=== PATIENT | female | born 1965 | race American Indian/Alaskan Native ===

== ENCOUNTER 2017-08-16 22:18 | Emergency (ER) | payer SELFPAY ==
[2017-08-17 00:01] VITALS: BP 123/75
[2017-08-17] MEDS ORDERED: MOTRIN PO ONE (04:48)
[2017-08-17] MEDS ORDERED: FLEXERIL PO ONE (04:48)
--- NOTE | 2017-08-17 04:54 | Emergency Department Report ---
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 Complaint: hip injury -: Gradual Injury: Hip: Right Type of Injury: unknown Place: home Severity: moderate Severity scale (0 -10): 4 Worsens With: weight bearing, movement, palpation Associated Symptoms: ambulatory Treatments Prior to Arrival: cold therapy - Related Data Home Medications Medication Instructions Recorded Confirmed Last Taken Hydrochlorothiazide [Hctz] 25 mg PO QDAY 08/03/13 06/28/14 06/28/14 Previous Rx's Medication Instructions Recorded Last Taken Type Acetaminophen/Codeine 1 tab PO Q6H PRN #15 tab 06/29/14 Unknown Rx [Acetaminophen-Codeine #3 TAB] Ibuprofen [Motrin] 800 mg PO Q8H PRN #21 tablet 06/29/14 Unknown Rx Cyclobenzaprine [Flexeril] 10 mg PO BID PRN #20 tablet 08/17/17 Unknown Rx Menthol/Camphor [[place] 1 applicatio TP BID PRN #1 tube 08/17/17 Unknown Rx Ointment] Naproxen 500 mg PO BID PRN #30 tablet 08/17/17 Unknown Rx Allergies Allergy/AdvReac Type Severity Reaction Status Date / Time No Known Allergies Allergy Verified 06/28/14 21:32 ED Review of Systems ROS: Stated complaint: RT HIP PAIN Other details as noted in HPI Constitutional: denies: chills, fever Eyes: denies: eye pain, eye discharge, vision change ENT: denies: ear pain, throat pain Respiratory: denies: cough, shortness of breath, wheezing Cardiovascular: denies: chest pain, palpitations Endocrine: no symptoms reported Gastrointestinal: denies: abdominal pain, nausea, diarrhea Genitourinary: denies: urgency, dysuria, discharge Musculoskeletal: arthralgia. denies: back pain, joint swelling, myalgia Skin: denies: rash, lesions Neurological: denies: headache, weakness, paresthesias Psychiatric: as per HPI Hematological/Lymphatic: denies: easy bleeding, easy bruising ED Past Medical Hx - Past Medical History Previous Medical History?: Yes Hx Hypertension: Yes Additional medical history: anemia - Surgical History Past Surgical History?: Yes Additional Surgical History: tubal ligation - Social History Smoking Status: Never Smoker Substance Use Type: None - Medications Home Medications: Home Medications Medication Instructions Recorded Confirmed Last Taken Type Hydrochlorothiazide [Hctz] 25 mg PO QDAY 08/03/13 06/28/14 06/28/14 History Acetaminophen/Codeine 1 tab PO Q6H PRN #15 tab 06/29/14 Unknown Rx [Acetaminophen-Codeine #3 TAB] Ibuprofen [Motrin] 800 mg PO Q8H PRN #21 tablet 06/29/14 Unknown Rx Cyclobenzaprine [Flexeril] 10 mg PO BID PRN #20 tablet 08/17/17 Unknown Rx Menthol/Camphor [[place] 1 applicatio TP BID PRN #1 tube 08/17/17 Unknown Rx Ointment] Naproxen 500 mg PO BID PRN #30 tablet 08/17/17 Unknown Rx ED Physical Exam - General Limitations: No Limitations General appearance: alert, in no apparent distress - Head Head exam: Present: atraumatic, normocephalic - Eye Eye exam: Present: normal appearance, conjunctival injection Pupils: Present: normal accommodation, mydriatic - ENT ENT exam: Present: normal exam, mucous membranes moist - Neck Neck exam: Present: normal inspection - Respiratory Respiratory exam: Present: normal lung sounds bilaterally. Absent: respiratory distress - Cardiovascular Cardiovascular Exam: Present: regular rate, normal rhythm, normal heart sounds. Absent: systolic murmur, diastolic murmur, rubs, gallop - GI/Abdominal GI/Abdominal exam: Present: soft - Rectal Rectal exam: Present: deferred - External exam: Present: swelling - Extremities Exam Extremities exam: Present: normal inspection, full ROM, tenderness (mild right hip tenderness ), normal capillary refill. Absent: pedal edema, joint swelling , calf tenderness - Expanded Lower Extremity Exam Right Hip exam: Present: full ROM, tenderness. Absent: swelling, abrasion, laceration , deformity, crepidus, dislocation, erythema, external rotation, internal rotation, shortening, pelvic stability Upper Leg exam: Present: normal inspection Knee exam: Present: normal inspection, full ROM Lower Leg exam: Present: normal inspection, full ROM Ankle exam: Present: normal inspection, full ROM Foot/Toe exam: Present: normal inspection, full ROM Neuro vascular tendon exam: Present: no vascular compromise. Absent: pulse deficit, abnormal cap refill, motor deficit, sensory deficit, tendon deficit, extremity cold to touch, pallor, abnormal 2-point discrimination, decreased fine /light touch, foot drop, peroneal nerve deficit, significant pain with passive ROM of distal joint Gait: Positive: observed and normal, observed and limited by pain ED Course Vital Signs 08/16/17 23:57 Temperature 98.1 F Pulse Rate 89 Respiratory 17 Rate Blood Pressure 123/75 O2 Sat by Pulse 99 Oximetry ED Lower Extremity MDM - Radiology Data Radiology results: report reviewed, image reviewed this a thigh muscle strain paln, nsaids and muscle relaxant prn moist heat therapy pt Critical Care Time: No Critical care attestation.: If time is entered above; I have spent that time in minutes in the direct care of this critically ill patient, excluding procedure time. ED Disposition Clinical Impression: Strain of hip flexor Qualifiers: Encounter type: initial encounter Laterality: right Qualified Code(s): S76.011A - Strain of muscle, fascia and tendon of right hip, initial encounter Disposition: TO HOME OR SELFCARE Is pt being admited?: No Does the pt Need Aspirin: No Condition: Good Instructions: Muscle Strain (ED) Prescriptions: Cyclobenzaprine [Flexeril] 10 mg PO BID PRN #20 tablet PRN Reason: Muscle Spasm Menthol/Camphor [[place] Ointment] 1 applicatio TP BID PRN #1 tube PRN Reason: Pain Naproxen 500 mg PO BID PRN #30 tablet PRN Reason: Pain , Severe (7-10) Referrals: JOSEMANUEL MESA MD [Primary Care Provider] - 3-5 Days Forms: Work/School Release Form(ED) Time of Disposition: 05:07
== END 2017-08-17 05:30 | disposition home or self-care (01) ==
LOC: ED 22:18
DX: S76.011A Strain of muscle, fascia and tendon of right hip, initial encounter (principal); X58.XXXA Exposure to other specified factors, initial encounter; Y93.89 Activity, other specified; Y92.89 Other specified places as the place of occurrence of the external cause; Y99.8 Other external cause status
CPT/HCPCS: 99282

== ENCOUNTER 2018-05-12 17:55 | Inpatient (IN) | payer OTHER ==
[2018-05-12] MEDS ORDERED: ASPIRIN PO ONE (18:10)
--- NOTE | 2018-05-12 18:11 | Emergency Department Report ---
Blank Doc - Documentation Documentation: 53 y.o. female presents with chest pain that started around 0100 this morning. Reports pain is worse with deep breaths. Pain is non-radiating. Denies shortness of breath, radiating pain, N/V, or palpations. Ordered EKG and labs Fast Track for evaluation
[2018-05-12 18:42] LABS: Basophils % (Auto) 0.4 % (0.0-1.8); Eosinophils # (Auto) 0.2 K/mm3 (0.0-0.4); Eosinophils % (Auto) 3.4 % (0.0-4.3); Hematocrit 34.3 % (30.3-42.9); Hemoglobin 11.1 gm/dl (10.1-14.3); Lymphocytes # (Auto) 2.1 K/mm3 (1.2-5.4); Lymphocytes % (Auto) 39.8 % (13.4-35.0); Mean Corpuscular HGB Conc 32 % (30-34); Mean Corpuscular Volume 90 fl (79-97); Monocytes # (Auto) 0.5 K/mm3 (0.0-0.8); Monocytes % (Auto) 9.1 % (0.0-7.3); Platelet Count 220 K/mm3 (140-440); Red Blood Count 3.81 M/mm3 (3.65-5.03); Red Cell Distribution Width 14.5 % (13.2-15.2)
[2018-05-12 19:01] LABS: BUN/Creatinine Ratio 11; Blood Urea Nitrogen 8 mg/dL (7-17); Calcium 9.5 mg/dL (8.4-10.2); Hemolysis Index 5
--- NOTE | 2018-05-12 20:13 | Emergency Department Report ---
ED Chest Pain HPI - General Chief Complaint: Chest Pain Stated Complaint: CHEST PAIN Time Seen by Provider: 05/12/18 20:01 Source: patient Mode of arrival: Ambulatory Limitations: No Limitations - History of Present Illness Initial Comments: She is a 53-year-old female that presents emergency with complaints of chest pain in the center of her chest pain since 1 PM. Patient states the pain is worsening. Patient states the pain is nonradiating. Patient states the pain is 7 out of 10. Patient states the pain is worse with exertion and better with r est. Patient states it feels like a achiness and heaviness in the center of her chest. Patient denies shortness of breath. Patient denies diaphoresis. Patient denies fever and chills. Patient denies cough. Patient denies trauma to the chest. Patient states she has past medical history of hypertension and is normally controlled with hydrochlorothiazide. Onset: during rest Pain Location: substernal Pain Radiation: none Severity: severe Severity scale (0 -10): 7 Quality: aching, pressure Consistency: constant Improves With: rest Worsens With: exertion re: denies: nausea, vomting, diaphoresis, dyspnea, sense of impending doom Other Symptoms: denies: cough, fever, syncope, rash, acid taste in mouth, leg swelling, palpitations, burping Treatments Prior to Arrival: none Aspirin use within the Past 7 Days: (0) No - Related Data On Oral Contraceptives: No Previous Rx's Medication Instructions Recorded Last Taken Type Ibuprofen [Motrin] 800 mg PO Q8H PRN #21 tablet 06/29/14 Unknown Rx Allergies Allergy/AdvReac Type Severity Reaction Status Date / Time No Known Allergies Allergy Verified 06/28/14 21:32 Heart Score - HEART Score History: Moderately suspicious EKG: Non-specific Age: 45-65 Risk factors: No known risk factors Troponin: < normal limit HEART Score: 3 ED Review of Systems ROS: Stated complaint: CHEST PAIN Other details as noted in HPI Constitutional: denies: chills, fever Eyes: denies: eye pain, eye discharge, vision change ENT: denies: ear pain, throat pain Respiratory: denies: cough, shortness of breath, wheezing Cardiovascular: chest pain. denies: palpitations Endocrine: no symptoms reported Gastrointestinal: denies: abdominal pain, nausea, diarrhea Genitourinary: denies: urgency, dysuria, discharge Musculoskeletal: denies: back pain, joint swelling, arthralgia Skin: denies: rash, lesions Neurological: denies: headache, weakness, paresthesias Psychiatric: denies: anxiety, depression Hematological/Lymphatic: denies: easy bleeding, easy bruising ED Past Medical Hx - Past Medical History Previous Medical History?: Yes Hx Hypertension: Yes Additional medical history: anemia - Surgical History Past Surgical History?: Yes Additional Surgical History: tubal ligation - Family History Family history: no significant - Social History Smoking Status: Never Smoker Substance Use Type: None - Medications Home Medications: Home Medications Medication Instructions Recorded Confirmed Last Taken Type Ibuprofen [Motrin] 800 mg PO Q8H PRN #21 tablet 06/29/14 05/12/18 Unknown Rx ED Physical Exam - General Limitations: No Limitations General appearance: alert, in no apparent distress - Head Head exam: Present: atraumatic, normocephalic - Eye Eye exam: Present: normal appearance - ENT ENT exam: Present: mucous membranes moist - Neck Neck exam: Present: normal inspection - Respiratory Respiratory exam: Present: normal lung sounds bilaterally. Absent: respiratory distress, chest wall tenderness, accessory muscle use - Cardiovascular Cardiovascular Exam: Present: regular rate, normal rhythm. Absent: systolic murmur, diastolic murmur, rubs, gallop - GI/Abdominal GI/Abdominal exam: Present: soft, normal bowel sounds - Extremities Exam Extremities exam: Present: normal inspection - Back Exam Back exam: Present: normal inspection - Neurological Exam Neurological exam: Present: alert, oriented X3 - Psychiatric Psychiatric exam: Present: normal affect, normal mood - Skin Skin exam: Present: warm, dry, intact, normal color. Absent: rash ED Course Vital Signs 05/12/18 05/12/18 05/12/18 18:07 20:00 20:15 Temperature 98.1 F Pulse Rate 86 Respiratory 18 Rate Blood Pressure 171/92 143/83 O2 Sat by Pulse 98 98 98 Oximetry 05/12/18 05/12/18 05/12/18 20:30 20:45 21:01 Temperature Pulse Rate Respiratory Rate Blood Pressure 143/83 143/83 O2 Sat by Pulse 97 97 97 Oximetry 05/12/18 05/12/18 05/12/18 21:15 21:31 21:45 Temperature Pulse Rate Respiratory Rate Blood Pressure 143/83 153/93 154/85 O2 Sat by Pulse 98 99 97 Oximetry 05/12/18 05/12/18 05/12/18 22:01 22:15 22:30 Temperature Pulse Rate Respiratory Rate Blood Pressure 153/93 153/93 145/93 O2 Sat by Pulse 97 97 96 Oximetry 05/12/18 05/12/18 22:45 23:39 Temperature Pulse Rate 82 Respiratory Rate Blood Pressure 134/83 O2 Sat by Pulse 97 Oximetry - Reevaluation(s) Reevaluation #1: Discussed all results with patient. Patient to be admitted to the hospitalist service. Patient voices understanding of results. Patient agrees with plan of care and admission. 05/12/18 21:01 - Consultations Consultation #1: Patient's primary care consulted for admission. Dr. Rivers to admit patient and assume care of patient. 05/12/18 21:39 FERNANDA score - Fernanda Score Age > 65: (0) No Aspirin use within the Past 7 Days: (0) No 3 or more CAD Risk Factors: (0) No 2 or more Angina events in past 24 hrs: (1) Yes Known CAD with more than 50% Stenosis: (0) No Elevated Cardiac Markers: (0) No ST Deviation Greater than 0.5mm: (0) No FERNANDA Score: 1 ED Medical Decision Making - Lab Data Result diagrams: 05/12/18 18:28 05/12/18 18:28 - EKG Data -: EKG Interpreted by Sd EKG shows normal: sinus rhythm, axis, intervals, QRS complexes, ST-T waves Rate: normal - Medical Decision Making is a 53-year-old female presents to emergency room with complaints of chest pain. Patient's initial cardiac workup was negative. Patient will be admitted to the patient's primary care to rule out ACS and further cardiac evaluation. Patient agrees to plan of care. Patient's labs unremarkable. - Differential Diagnosis cp. acs. Critical care attestation.: If time is entered above; I have spent that time in minutes in the direct care of this critically ill patient, excluding procedure time. ED Disposition Clinical Impression: Chest pain Qualifiers: Chest pain type: unspecified Qualified Code(s): R07.9 - Chest pain, unspecified Hypertension Qualifiers: Hypertension type: essential hypertension Qualified Code(s): I10 - Essential (primary) hypertension Disposition: DC-09 OP ADMIT IP TO THIS HOSP Is pt being admited?: Yes Does the pt Need Aspirin: No Condition: Serious Time of Disposition: 21:04
[2018-05-12] MEDS ORDERED: MORPHINE ONE (23:06)
[2018-05-12] MEDS ORDERED: MORPHINE IV ONE (23:39)
[2018-05-13] MEDS ORDERED: AFLURIA QUAD 2018-2019 SYRINGE IM ONE (12:00)
[2018-05-13] MEDS ORDERED: LEXISCAN IV ONE ×2 (12:07→12:13)
--- NOTE | 2018-05-13 12:58 | Event Note ---
Date: 05/13/18 patient not in room. consulted for hypoxemia, but documented that patient is on room air and stable. Will discuss with attending who placed consult. For now, likely will sign off.
--- NOTE | 2018-05-13 18:36 | Consultation ---
History of Present Illness Consult date: 05/13/18 Medications and Allergies Allergies Allergy/AdvReac Type Severity Reaction Status Date / Time No Known Allergies Allergy Verified 06/28/14 21:32 Home Medications Medication Instructions Recorded Confirmed Last Taken Type Ibuprofen [Motrin] 800 mg PO Q8H PRN #21 tablet 06/29/14 05/12/18 Unknown Rx Active Meds: Active Medications Hydrochlorothiazide (Hctz) 12.5 mg PO ONCE ONE Stop: 05/14/18 20:01 Hydrochlorothiazide (Hctz) 25 mg PO QDAY [facility] Potassium Chloride (K-Dur) 20 meq PO QDAY ROEL Physical Examination Vital Signs Temp Pulse Resp BP Pulse Ox 98.1 F 86 18 171/92 98 05/12/18 18:07 05/12/18 18:07 05/12/18 18:07 05/12/18 18:07 05/12/18 18:07 Results 05/12/18 18:28 05/12/18 18:28 CBC 05/12/18 Range/Units 18:28 WBC 5.2 (4.5-11.0) K/mm3 RBC 3.81 (3.65-5.03) M/mm3 Hgb 11.1 (10.1-14.3) gm/dl Hct 34.3 (30.3-42.9) % Plt Count 220 (140-440) K/mm3 Lymph # 2.1 (1.2-5.4) K/mm3 [place] # 0.5 (0.0-0.8) K/mm3 Eos # 0.2 (0.0-0.4) K/mm3 Baso # 0.0 (0.0-0.1) K/mm3 Comprehensive Metabolic Panel 05/12/18 Range/Units 18:28 Sodium 141 (137-145) mmol/L Potassium 3.5 L (3.6-5.0) mmol/L Chloride 102.6 (98-107) mmol/L Carbon Dioxide 28 (22-30) mmol/L BUN 8 (7-17) mg/dL Creatinine 0.7 (0.7-1.2) mg/dL Glucose 99 (65-100) mg/dL Calcium 9.5 (8.4-10.2) mg/dL Assessment and Plan Detailed Cardiology consult dictated.
[2018-05-13] MEDS ORDERED: TYLENOL PO PRN (20:25)
[2018-05-13] MEDS: K-DUR PO SCH (21:04)
--- NOTE | 2018-05-13 21:22 | History and Physical Report ---
History of Present Illness Date of examination: 05/13/18 Date of admission: 05/12/18 21:40 Chief complaint: Chest pain. History of present illness: patient presented to the ER with Cp, non radiating,no family hx, but has hx of HTN. she described CP as heaviness, no associated N/V. she has her BP controlled by HCTZ low dose. Patient is admitted to r/o NE. She has since been seen in consultation by the Cardiology, and had a stress test done.will follow cardiology as regards to disposition. Past History Past Medical History: hypertension Social history: no significant social history Family history: no significant family history Medications and Allergies Allergies Allergy/AdvReac Type Severity Reaction Status Date / Time No Known Allergies Allergy Verified 06/28/14 21:32 Home Medications Medication Instructions Recorded Confirmed Last Taken Type Ibuprofen [Motrin] 800 mg PO Q8H PRN #21 tablet 06/29/14 05/12/18 Unknown Rx Active Meds: Active Medications Acetaminophen (Tylenol) 650 mg PO Q6H PRN PRN Reason: Headache Last Admin: 05/13/18 21:04 Dose: 650 mg Documented by: Hydrochlorothiazide (Hctz) 25 mg PO QDAY [facility] Hydrochlorothiazide (Hctz) 12.5 mg PO ONCE ONE Stop: 05/13/18 21:31 Last Admin: 05/13/18 21:04 Dose: 12.5 mg Documented by: Potassium Chloride (K-Dur) 20 meq PO QDAY [facility] Last Admin: 05/13/18 21:04 Dose: 20 meq Documented by: Review of Systems Breasts: deferred Cardiovascular: chest pain Exam - Constitutional Vitals: Temp Pulse Resp BP Pulse Ox 98.1 F 82 20 136/72 99 05/13/18 20:02 05/13/18 20:02 05/13/18 20:02 05/13/18 20:02 05/13/18 20:02 General appearance: Present: no acute distress, well-nourished - EENT Eyes: Present: PERRL ENT: hearing intact, clear oral mucosa - Neck Neck: Present: supple, normal ROM - Respiratory Respiratory effort: normal Respiratory: bilateral: CTA - Cardiovascular Heart Sounds: Present: S1 & S2. Absent: rub, click - Extremities Extremities: pulses symmetrical, No edema Peripheral Pulses: within normal limits - Abdominal General gastrointestinal: Present: soft, non-tender, non-distended, normal bowel sounds Female genitourinary: Present: deferred - Rectal Rectal Exam: deferred - Integumentary Integumentary: Present: clear, warm, dry - Musculoskeletal Musculoskeletal: gait normal, strength equal bilaterally - Psychiatric Psychiatric: appropriate mood/affect, intact judgment & insight - Neurologic Neurologic: CNII-XII intact, moves all extremities Results - Labs CBC & Chem 7: 05/12/18 18:28 05/12/18 18:28 Assessment and Plan - Patient Problems (1) Chest pain Current Visit: Yes Status: Acute Qualifiers: Chest pain type: unspecified Qualified Code(s): R07.9 - Chest pain, unspecified Plan to address problem: Follow protocol., see notes, follow cardiology. (2) Hypertension Current Visit: Yes Status: Acute Qualifiers: Hypertension type: essential hypertension Qualified Code(s): I10 - Essential (primary) hypertension Plan to address problem: control BP.
[2018-05-13] MEDS ORDERED: IBUPROFEN PO PRN (21:27)
[2018-05-13] MEDS ORDERED: HCTZ PO ONE ×2 (21:30→22:00)
--- NOTE | 2018-05-13 22:32 | Treadmill Report ---
SINGLE ISOTOPE DUAL STUDY MYOCARDIAL PERFUSION SCAN REPORT AGE: 53. SEX: Female. REFERRING PHYSICIAN: Reno Rivers DO Seen and evaluated by Dr. Debra Valadez. The patient received 10 mCi of technetium 99m Myoview intravenously under resting conditions. Resting myocardial perfusion scan was done. Subsequently, the patient underwent exercise stress test as per the standard [facility] protocol. During exercise stress test, the patient received 28 mCi of technetium 99m Myoview intravenously. After 30-60 minutes, post stress images were done. Computerized reconstructed images were performed for analysis. The post-stress images did not reveal any perfusion abnormality. Gated study did not reveal any wall motion abnormality. The left ventricular ejection fraction was normal and was calculated to be 68%. The resting images were also normal. CONCLUSION: 1. Normal resting as well as stress myocardial perfusion scan images after the patient underwent exercise stress test. 2. No wall motion abnormality. 3. Normal left ventricular ejection fraction of 68%. JOB# [id number] [facility]
[2018-05-14 05:26] LABS: Basophils % (Auto) 0.7 % (0.0-1.8); Eosinophils # (Auto) 0.2 K/mm3 (0.0-0.4); Eosinophils % (Auto) 5.1 % (0.0-4.3); Hematocrit 34.9 % (30.3-42.9); Hemoglobin 11.5 gm/dl (10.1-14.3); Lymphocytes # (Auto) 2.2 K/mm3 (1.2-5.4); Lymphocytes % (Auto) 45.4 % (13.4-35.0); Mean Corpuscular HGB Conc 33 % (30-34); Mean Corpuscular Volume 88 fl (79-97); Monocytes # (Auto) 0.3 K/mm3 (0.0-0.8); Monocytes % (Auto) 7.3 % (0.0-7.3); Platelet Count 234 K/mm3 (140-440); Red Blood Count 3.98 M/mm3 (3.65-5.03); Red Cell Distribution Width 14.3 % (13.2-15.2)
[2018-05-14 05:51] LABS: BUN/Creatinine Ratio 14; Blood Urea Nitrogen 10 mg/dL (7-17); Calcium 9.1 mg/dL (8.4-10.2); Hemolysis Index 9
[2018-05-14 08:09] LABS: Alanine Aminotransferase 8 units/L (7-56); Albumin 3.6 g/dL (3.9-5); BUN/Creatinine Ratio 17; Blood Urea Nitrogen 12 mg/dL (7-17); Hemolysis Index 5
[2018-05-14] MEDS: K-DUR PO SCH (09:26)
[2018-05-14] MEDS ORDERED: HCTZ PO SCH (10:00)
--- NOTE | 2018-05-14 10:16 | Progress Note ---
Assessment and Plan chest pain probably gi obesity rec: May discharge from cardiac vessel coronary view suggests a proton pump inhibitor for chest pain Subjective Date of service: 05/14/18 Principal diagnosis: chest pain Interval history: chest pain free Objective Vital Signs Temp Pulse Resp BP Pulse Ox 05/14/18 04:47 97.9 F 83 20 114/74 98 05/14/18 04:25 60 05/14/18 00:16 97.5 F L 70 18 114/71 94 05/13/18 20:05 88 05/13/18 20:02 98.1 F 82 20 136/72 99 05/13/18 15:26 98.0 F 74 20 150/89 97 05/13/18 12:50 85 146/69 99 05/13/18 12:46 109 H 169/87 100 05/13/18 12:22 65 148/86 98 05/13/18 10:43 97.9 F 71 20 139/83 84 - Physical Examination General: Appears Well, No Apparent Distress HEENT: Positive: PERRL Neck: Positive: neck supple Cardiac: Positive: Reg Rate and Rhythm Lungs: Positive: clear to auscultation Neuro: Positive: Grossly Intact Abdomen: Positive: Soft /Rectal: Normal Prostate, No Masses Skin: Musculoskeletal: No Fluid Collection, No Pain, Normal Range of Motion Gait: Normal Gait Extremities: Absent: edema - Labs and Meds Cardiac Enzymes 05/14/18 Range/Units 00:17 AST 11 (5-40) units/L CBC 05/14/18 Range/Units 04:54 WBC 4.8 (4.5-11.0) K/mm3 RBC 3.98 (3.65-5.03) M/mm3 Hgb 11.5 (10.1-14.3) gm/dl Hct 34.9 (30.3-42.9) % Plt Count 234 (140-440) K/mm3 Lymph # 2.2 (1.2-5.4) K/mm3 [place] # 0.3 (0.0-0.8) K/mm3 Eos # 0.2 (0.0-0.4) K/mm3 Baso # 0.0 (0.0-0.1) K/mm3 Comprehensive Metabolic Panel 05/14/18 05/14/18 Range/Units 00:17 04:54 Sodium 141 141 (137-145) mmol/L Potassium 4.1 4.2 (3.6-5.0) mmol/L Chloride 104.9 104.8 (98-107) mmol/L Carbon Dioxide 23 25 (22-30) mmol/L BUN 12 10 (7-17) mg/dL Creatinine 0.7 0.7 (0.7-1.2) mg/dL Glucose 96 95 (65-100) mg/dL Calcium 9.0 9.1 (8.4-10.2) mg/dL AST 11 (5-40) units/L ALT 8 (7-56) units/L Alkaline Phosphatase 72 (35-129) units/L Total Protein 6.7 (6.3-8.2) g/dL Albumin 3.6 L (3.9-5) g/dL - Imaging and Cardiology Pharmacologic stress test: report reviewed (normal myocardial perfusion no signficant ischemia noted) - Telemetry EKG Rhythm: Sinus Rhythm
[2018-05-14 12:57] LABS: Chol/HDL Ratio 2.86 %; HDL Cholesterol 46 mg/dL (40-59); LDL Cholesterol,Direct 83 mg/dL (50-130)
[2018-05-14 18:54] VITALS: BP 124/89
--- NOTE | 2018-05-14 20:39 | Discharge Summary ---
Providers - Providers Date of Admission: 05/12/18 21:40 Date of discharge: 05/14/18 Attending physician: JOE GARCIA 05/13/18 11:12 Consult to Physician [CONS] Routine Comment: COMPLETED Consulting Provider: KARYN ZAVALA Physician Instructions: Reason For Exam: chest pain Primary care physician: JOE GARCIA Hospitalization Reason for admission: Chest pain. Condition: Stable Pertinent studies: Stress test cardiac.and negative result. Hospital course: Patient presented to the ER with Chest pain, admitted, and NH rulled out with a negative cardiac stress test, Patient seen/examined today, as well as by the cardiology, notes reviewed, and i have also spoken to the decating machine operator, with whom it was ok to d/c patient home.patient denies any chest pain at this time. She is reminded to follow up with [facility] where her doctors are. She will continue PPI at home as previously. If any other problems, she is to go to the nearest ER.This admission, the ER doctor had called me in an error,and i admitted her without knowing that she was never my patient.The next time she comes to the ER, she will have to be admitted by the Hospitalist group. Disposition: TO HOME OR SELFCARE - Discharge Diagnoses (1) Chest pain Status: Resolved Qualifiers: Chest pain type: unspecified Qualified Code(s): R07.9 - Chest pain, un specified (2) Hypertension Status: Chronic Qualifiers: Hypertension type: essential hypertension Qualified Code(s): I10 - Essential (primary) hypertension Core Measure Documentation - Palliative Care Palliative Care/ Comfort Measures: Not Applicable - Core Measures Any of the following diagnoses?: none Exam - Constitutional Vitals: Temp Pulse Resp BP Pulse Ox 98.5 F 69 18 124/89 99 05/14/18 18:53 05/14/18 18:53 05/14/18 18:53 05/14/18 18:53 05/14/18 18:53 General appearance: Present: mild distress, well-nourished - EENT Eyes: Present: PERRL ENT: hearing intact, clear oral mucosa - Neck Neck: Present: supple, normal ROM - Respiratory Respiratory effort: normal Respiratory: bilateral: CTA - Cardiovascular Heart Sounds: Present: S1 & S2. Absent: rub, click - Extremities Extremities: pulses symmetrical, No edema Peripheral Pulses: within normal limits - Abdominal General gastrointestinal: Present: soft, non-tender, non-distended, normal bowel sounds Female genitourinary: Present: deferred - Rectal Rectal Exam: deferred - Integumentary Integumentary: Present: clear, warm, dry - Musculoskeletal Musculoskeletal: gait normal, strength equal bilaterally - Psychiatric Psychiatric: appropriate mood/affect, intact judgment & insight - Neurologic Neurologic: CNII-XII intact, moves all extremities Plan Activity: no restrictions Diet: regular (Patient to continue PPI as at home, and follow up with [facility].)
--- NOTE | 2018-05-15 13:19 | Consultation ---
CARDIOLOGY CONSULTATION AGE: 53. SEX: Female. Seen and dictated by Dr. Debra Valadez. HISTORY OF PRESENT ILLNESS: A 53-year-old obese (BMI of 33.7) pleasant -[place] woman with a history of longstanding hypertension, was admitted with a moderate substernal pressure-like chest pains, not related to exertion, but related to breathing for the past one to two days. She also had some shortness of breath on exertion. No history of nausea, vomiting, palpitations, dizziness, presyncope, or syncope. Serial troponins were negative and myocardial infarction has been ruled out. No history of diabetes mellitus or hyperlipidemia. She underwent exercise stress nuclear scan today. She had fair exercise tolerance. EKG was negative for ischemia. She did not have any chest pain. However, at the peak of exercise, she went in for transient atrial fibrillation with a fast ventricular response (heart rate up to 214 per minute). She spontaneously converted to sinus tachycardia. Myocardial perfusion scan was normal. The LV ejection fraction by myocardial scan was 68%. PAST MEDICAL HISTORY: No history of any major surgery in the past. No history of CAD or myocardial infarction in the past. SOCIAL HISTORY: Not a smoker, not an alcoholic, no history of drug abuse. No history of caffeine overuse. No history of any thyroid problem. FAMILY HISTORY: Negative for premature coronary artery disease. MEDICATIONS: She has received intravenous morphine sulfate. The hydrochlorothiazide is on hold at this time. REVIEW OF SYSTEMS: CARDIOVASCULAR SYSTEM: As described in the history. PULMONARY: As described in the history. METABOLISM AND ENDOCRINOLOGY: As described in the history. Review of rest of the 10-systems is negative. OBJECTIVE: GENERAL: A 53-year-old obese, pleasant -[place] woman. VITAL SIGNS: Afebrile, pulse 74 per minute and regular, blood pressure 150/89 mmHg, and respirations 18 per minute. NEUROLOGIC: She is alert and oriented x 3. HEENT: Negative. NECK: Supple, no JVD, no bruit, no thyromegaly. HEART: PMI slightly shifted laterally and is forcible in nature, no palpable thrills. Auscultation of the heart reveals S1, S2 heard. S2 is loud. Grade 2/6 harsh ejection systolic murmur is heard over the space. No rub. EXTREMITIES: Peripheral pulses felt. 1+ edema of the left lower extremity, no edema in the right lower extremity. LUNGS: Bilateral air entry good and equal. No bronchial breathing, no wheezing. ABDOMEN: Soft, benign, bowel sounds heard. SKIN: Negative. BONE AND JOINTS: Negative. LABORATORY DATA: As described in the history. Potassium 3.5, BUN and creatinine are within normal limits. Sodium 141. Hemoglobin and hematocrit 11.1 and 34.3 respectively. WBC, platelet count within normal limits. EKG; normal sinus rhythm, left atrial enlargement, prolonged QT, nonspecific T-wave changes in the anterior leads. IMPRESSION: 1. Atypical chest pains, myocardial infarction ruled out. 2. Hypertension. 3. Mild hypokalemia secondary to hydrochlorothiazide. 4. Abnormal EKG. 5. Negative exercise stress nuclear scan. 6. Brief episode of atrial fibrillation with fast ventricular response at the peak of exercise, which subsided spontaneously (during exercise stress test). 7. Normal myocardial perfusion scan with normal left ventricular systolic function. RECOMMENDATIONS: 1. We will give her HCTZ 12.5 p.o., potassium chloride 20 mEq p.o. at this time and place her on HCTZ 25 mg p.o. daily, potassium chloride 20 mEq p.o. daily from tomorrow. 2. Low salt diet. 3. We will order for comprehensive metabolic panel and fasting lipid panel in a.m. Thank you again, we will follow. JOB# [id number] CALISTA/GOGO MTDLuly
== END 2018-05-14 21:30 | disposition home or self-care (01) | DRG 313 ==
LOC: ED 17:55 → 4A 21:40
PROVIDERS: ADMIT Internal Medicine Hematology & Oncology; ATTEND Internal Medicine Hematology & Oncology
DX: R07.89 Other chest pain (principal); Z68.41 Body mass index [BMI] 40.0-44.9, adult; I10 Essential (primary) hypertension; E66.9 Obesity, unspecified; E87.6 Hypokalemia; T50.2X5A Adverse effect of carbonic-anhydrase inhibitors, benzothiadiazides and other diuretics, initial encounter; R94.31 Abnormal electrocardiogram [ECG] [EKG]; Z79.899 Other long term (current) drug therapy; Z98.51 Tubal ligation status; Y92.89 Other specified places as the place of occurrence of the external cause
CPT/HCPCS: 36415; 78452; 80048; 80053; 80061; 84484; 85025; 90686; 93005; 93010; 93017; 96374; G0378; A9502; J2270; J2785

== ENCOUNTER 2019-01-24 17:04 | Emergency (ER) | payer SELFPAY ==
--- NOTE | 2019-01-24 17:40 | Event Note ---
ED Screening Note Date of service: 01/24/19 Time: 17:37 ED Screening Note: This is a 53 y.o. F. that presents to the ER with dizziness, n/v, and low back pain for 3 days. Patient reports eating popeyes Wednesday and sick every since. 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 Diarrhea this morning which has resolved. This initial assessment/diagnostic orders/clinical plan/treatment(s) is/are subject to change based on patients health status, clinical progression and re- assessment by fellow clinical providers in the ED. Further treatment and workup at subsequent clinical providers discretion. Patient/guardian urged not to elope from the ED as their condition may be serious if not clinically assessed and managed. Initial orders include: Labs
[2019-01-24 18:37] LABS: Bacteria,Urine 2+ /HPF (Negative); Bilirubin,Urine NEG (Negative); Blood,Urine MOD (Negative); Color,Urine Yellow (Yellow); Hyaline Casts,Urine 1 /LPF; Mucus,Urine 1+ /HPF; Urobilinogen,Urine < 2.0 mg/dL (<2.0)
[2019-01-24 18:52] LABS: Basophils % (Auto) 0.2 % (0.0-1.8); Eosinophils % (Auto) 0.1 % (0.0-4.3); Hematocrit 34.8 % (30.3-42.9); Hemoglobin 11.7 gm/dl (10.1-14.3); Lymphocytes # (Auto) 0.9 K/mm3 (1.2-5.4); Lymphocytes % (Auto) 10.7 % (13.4-35.0); Mean Corpuscular HGB Conc 34 % (30-34); Mean Corpuscular Volume 87 fl (79-97); Monocytes # (Auto) 1.1 K/mm3 (0.0-0.8); Monocytes % (Auto) 13.1 % (0.0-7.3); Platelet Count 160 K/mm3 (140-440); Red Blood Count 3.98 M/mm3 (3.65-5.03); Red Cell Distribution Width 14.3 % (13.2-15.2)
[2019-01-24 19:12] LABS: Alanine Aminotransferase 19 units/L (7-56); Albumin 3.9 g/dL (3.9-5); BUN/Creatinine Ratio 12; Blood Urea Nitrogen 11 mg/dL (7-17); Calcium 9.6 mg/dL (8.4-10.2); Hemolysis Index 2
[2019-01-24] MEDS ORDERED: NACL 0.9% 1000 ML 1,000 ML IV ONE (19:33)
[2019-01-24] MEDS ORDERED: ZOFRAN IV ONE (19:33)
[2019-01-24 20:14] LABS: INR 1.12 (0.87-1.13)
[2019-01-24 20:15] LABS: Partial Thromboplastin Time 31.9 Sec. (24.2-36.6)
--- NOTE | 2019-01-24 23:31 | Emergency Department Report ---
ED Abdominal Pain HPI - General Chief Complaint: Abdominal Pain Stated Complaint: VOMITING/ABD PAIN Time Seen by Provider: 01/24/19 17:37 Source: patient Mode of arrival: Ambulatory Limitations: No Limitations - History of Present Illness Initial Comments: EKG L-year-old nausea vomiting and low back pain from this normal This is a 53 y.o. F. that presents to the ER with dizziness, n/v, and low back pain for 3 days. Patient reports eating popeyes Wednesday and sick every since. 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 she had diarrhea this morning which has resolved. MD Complaint: abdominal pain Onset/Timin -: days(s) Location: LLQ, RLQ Radiation: LLQ, RLQ Migration to: LLQ, RLQ Quality: cramping, aching Consistency: intermittent Improves With: nothing Worsens With: eating Associated Symptoms: nausea, vomiting, diarrhea. denies: melena - Related Data Previous Rx's Medication Instructions Recorded Last Taken Type Ibuprofen [Motrin] 800 mg PO Q8H PRN #21 tablet 06/29/14 Unknown Rx Dicyclomine [Bentyl] 10 mg PO QID PRN #40 capsule 01/24/19 Unknown Rx Naproxen [Naprosyn] 500 mg PO BID PRN #30 tablet 01/24/19 Unknown Rx Ondansetron [Zofran Odt] 4 mg PO Q8HR PRN #12 tab.rapdis 01/24/19 Unknown Rx Allergies Allergy/AdvReac Type Severity Reaction Status Date / Time No Known Allergies Allergy Verified 06/28/14 21:32 ED Review of Systems ROS: Stated complaint: VOMITING/ABD PAIN Other details as noted in HPI Constitutional: weakness. denies: chills, fever Eyes: denies: eye pain, eye discharge, vision change ENT: denies: ear pain, throat pain Respiratory: denies: cough, shortness of breath, wheezing Cardiovascular: denies: chest pain, palpitations Endocrine: no symptoms reported Gastrointestinal: abdominal pain, nausea, vomiting, diarrhea Genitourinary: denies: urgency, dysuria, discharge Musculoskeletal: denies: back pain, joint swelling, arthralgia Skin: denies: rash, lesions Neurological: denies: headache, weakness, numbness, paresthesias, confusion, vertigo Psychiatric: denies: anxiety, depression Hematological/Lymphatic: denies: easy bleeding, easy bruising ED Past Medical Hx - Past Medical History Previous Medical History?: Yes Hx Hypertension: Yes Hx Arthritis: Yes (right knee) Additional medical history: anemia - Surgical History Past Surgical History?: Yes Additional Surgical History: tubal ligation - Social History Smoking Status: Never Smoker Substance Use Type: None - Medications Home Medications: Home Medications Medication Instructions Recorded Confirmed Last Taken Type Ibuprofen [Motrin] 800 mg PO Q8H PRN #21 tablet 06/29/14 05/12/18 Unknown Rx Dicyclomine [Bentyl] 10 mg PO QID PRN #40 capsule 01/24/19 Unknown Rx Naproxen [Naprosyn] 500 mg PO BID PRN #30 tablet 01/24/19 Unknown Rx Ondansetron [Zofran Odt] 4 mg PO Q8HR PRN #12 tab.rapdis 01/24/19 Unknown Rx ED Physical Exam - General Limitations: No Limitations General appearance: alert, in no apparent distress - Head Head exam: Present: atraumatic, normocephalic - Eye Eye exam: Present: normal appearance, PERRL, EOMI Pupils: Present: normal accommodation - ENT ENT exam: Present: normal orophraynx, mucous membranes moist, TM's normal bilaterally, normal external ear exam - Neck Neck exam: Present: normal inspection, full ROM. Absent: tenderness, lymphaden opathy - Respiratory Respiratory exam: Present: normal lung sounds bilaterally. Absent: respiratory distress, wheezes, stridor, chest wall tenderness - Cardiovascular Cardiovascular Exam: Present: regular rate, normal rhythm, normal heart sounds. Absent: systolic murmur, diastolic murmur, rubs, gallop - GI/Abdominal GI/Abdominal exam: Present: soft, normal bowel sounds. Absent: distended, tenderness, guarding, rebound, rigid, bruit, hernia - Rectal Rectal exam: Present: deferred - Extremities Exam Extremities exam: Present: normal inspection, full ROM. Absent: tenderness - Back Exam Back exam: Present: normal inspection, full ROM. Absent: tenderness, CVA tenderness (R), CVA tenderness (L), rash noted - Neurological Exam Neurological exam: Present: alert, oriented X3, CN II-XII intact, normal gait, reflexes normal. Absent: motor sensory deficit - Expanded Neurological Exam Expanded Patient oriented to: Present: person, place, time Speech: Present: fluid speech Cranial nerves: EOM's Intact: Normal, Gag Reflex: Normal, Tongue Deviation: Normal, Nystagmus: Normal, Facial Sensation: Normal Upper motor neuron: Jj Neglect: Normal, Pronator Drift: Normal, Sensory Extinction: Normal Motor strength exam: RUE: 5, LUE: 5, RLE: 5, LLE: 5 DTR: bicep (R): 2+, bicep (L): 2+, ankle (R): 2+, ankle (L): 2+ Best Eye Response ([place]): (4) open spontaneously Best Motor Response (Vivek): (6) obeys commands Best Verbal Response (Vivek): (5) oriented [place] Total: 15 - Psychiatric Psychiatric exam: Present: normal affect, normal mood - Skin Skin exam: Present: warm, dry, intact, normal color. Absent: rash ED Course Vital Signs 01/24/19 17:12 Temperature 99.4 F Pulse Rate 93 H Respiratory 16 Rate Blood Pressure 143/78 O2 Sat by Pulse 97 Oximetry ED Medical Decision Making - Lab Data Result diagrams: 01/24/19 18:18 01/24/19 18:18 Labs 01/24/19 01/24/19 01/24/19 17:54 18:18 18:18 WBC 8.2 RBC 3.98 Hgb 11.7 Hct 34.8 MCV 87 MCH 29 MCHC 34 RDW 14.3 Plt Count 160 Lymph % (Auto) 10.7 L [place] % (Auto) 13.1 H Eos % (Auto) 0.1 Baso % (Auto) 0.2 Lymph # 0.9 L [place] # 1.1 H Eos # 0.0 Baso # 0.0 Seg Neutrophils % 75.9 H Seg Neutrophils # 6.2 PT INR APTT Sodium 137 Potassium 3.5 L Chloride 95.1 L Carbon Dioxide 29 Anion Gap 16 BUN 11 Creatinine 0.9 Estimated GFR > 60 BUN/Creatinine Ratio 12 Glucose 116 H Calcium 9.6 Total Bilirubin 1.80 H AST 24 ALT 19 Alkaline Phosphatase 76 Total Protein 8.3 H Albumin 3.9 Albumin/Globulin Ratio 0.9 Lipase Urine Color Yellow Urine Turbidity Slightly-cloudy Urine pH 5.0 Ur Specific [place] 1.020 Urine Protein 100 mg/dl Urine Glucose (UA) Neg Urine Ketones Neg Urine Blood Mod Urine Nitrite Neg Urine Bilirubin Neg Urine Urobilinogen < 2.0 Ur Leukocyte Esterase Sm Urine WBC (Auto) 37.0 H Urine RBC (Auto) 21.0 U Epithel Cells (Auto) 4.0 Urine Bacteria (Auto) 2+ Hyaline Casts 1 Urine Mucus 1+ 01/24/19 01/24/19 19:46 19:46 WBC RBC Hgb Hct MCV MCH MCHC RDW Plt Count Lymph % (Auto) [place] % (Auto) Eos % (Auto) Baso % (Auto) Lymph # [place] # Eos # Baso # Seg Neutrophils % Seg Neutrophils # PT 14.1 INR 1.12 APTT 31.9 Sodium Potassium Chloride Carbon Dioxide Anion Gap BUN Creatinine Estimated GFR BUN/Creatinine Ratio Glucose Calcium Total Bilirubin AST ALT Alkaline Phosphatase Total Protein Albumin Albumin/Globulin Ratio Lipase 10 L Urine Color Urine Turbidity Urine pH Ur Specific [place] Urine Protein Urine Glucose (UA) Urine Ketones Urine Blood Urine Nitrite Urine Bilirubin Urine Urobilinogen Ur Leukocyte Esterase Urine WBC (Auto) Urine RBC (Auto) U Epithel Cells (Auto) Urine Bacteria (Auto) Hyaline Casts Urine Mucus - EKG Data EKG shows normal: sinus rhythm, axis, intervals, QRS complexes, ST-T waves Rate: normal - EKG Data When compared to previous EKG there are: no significant change Interpretation: normal EKG (EKG, ), nonspecific ST-T wave [place] - Radiology Data Radiology results: report reviewed, image reviewed - Medical Decision Making Pt declines ct scan of abd and pelvis, states symptoms are resolved with ivf and zofran, ua: noted for wbc, rbc, luek, will tx for uti, pt will continue to hydrate at home , dc to home with rx for bentyl, zofran, macrobid , follow up with pcp in 2-3 days, pt is tolerating po intake , there is no n/v , lipase is normal , will follow up with GI and pcp as directe, will return to ed if symptoms worsen. Critical care attestation.: If time is entered above; I have spent that time in minutes in the direct care of this critically ill patient, excluding procedure time. ED Disposition Clinical Impression: Abdominal pain Qualifiers: Abdominal location: lower abdomen, unspecified Qualified Code(s): R10.30 - Lower abdominal pain, unspecified Nausea and vomiting Qualifiers: Vomiting type: unspecified Vomiting Intractability: non-intractable Qualified Code(s): R11.2 - Nausea with vomiting, unspecified UTI (urinary tract infection) Qualifiers: Urinary tract infection type: acute cystitis Hematuria presence: without hematuria Qualified Code(s): N30.00 - Acute cystitis without hematuria Disposition: TO HOME OR SELFCARE Is pt being admited?: No Does the pt Need Aspirin: No Condition: Stable Instructions: Abdominal Pain (ED) Prescriptions: Dicyclomine [Bentyl] 10 mg PO QID PRN #40 capsule PRN Reason: abdominal spasm Naproxen [Naprosyn] 500 mg PO BID PRN #30 tablet PRN Reason: pain Ondansetron [Zofran Odt] 4 mg PO Q8HR PRN #12 tab.rapdis PRN Reason: Nausea Referrals: [facility] [Provider Group] - 3-5 Days QUETA BETH MD [Staff Physician] - 3-5 Days Forms: Work/School Release Form(ED) Time of Disposition: 23:43
[2019-01-25 06:21] VITALS: BP 126/60
== END 2019-01-25 00:05 | disposition home or self-care (01) ==
LOC: ED 17:04
DX: N39.0 Urinary tract infection, site not specified (principal)
CPT/HCPCS: 36415; 80053; 81001; 83690; 85025; 85610; 85730; 87086; 93005; 93010; 96361; 96374; 99283; J2405; J7030